=== PATIENT | male | born 1965 | race Caucasian/White ===

== ENCOUNTER 2017-08-06 08:53 | Emergency (ER) | payer SELFPAY ==
[~2017-08-06] VITALS: Ht 175.3 cm; Wt 75.9 kg
[2017-08-06 08:57] VITALS: BP 150/96
[2017-08-06] MEDS ORDERED: CEFAZOLIN 1,000 MG ONE (09:52)
[2017-08-06] MEDS ORDERED: CEFAZOLIN 1,000 MG IM ONE (10:00)
== END 2017-08-06 10:23 | disposition home or self-care (01) ==
LOC: ED 10:00
DX: L03.012 Cellulitis of left finger (principal)
CPT/HCPCS: 96372; 99283; J0690